=== PATIENT | female | born 1990 | race Caucasian/White ===

== ENCOUNTER 2017-04-09 07:17 | Emergency (ER) | payer OTHER ==
[~2017-04-09] VITALS: Ht 157.5 cm; Wt 65.8 kg
[2017-04-09 07:27] VITALS: BP 148/91
== END 2017-04-09 07:44 | disposition home or self-care (01) ==
LOC: EDUNIT# 07:17 → ER 07:18
DX: J02.9 Acute pharyngitis, unspecified (principal); K59.00 Constipation, unspecified
CPT/HCPCS: 99283; A4606; Z7610

== ENCOUNTER 2020-10-26 03:34 | Emergency (ER) | payer OTHER ==
[~2020-10-26] VITALS: Ht 160 cm; Wt 63.5 kg
--- NOTE | 2020-10-26 03:34 | NUR ---
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 VSS. NAD PENDING ER PROVIDER MYLES
[2020-10-26] MEDS ORDERED: methylPREDNISolone SOD SUCC 125 MG/2ML VIAL ONE (03:36)
[2020-10-26] MEDS ORDERED: diphenhydrAMINE HCL 50 MG/ML VIAL ONE (03:36)
[2020-10-26] MEDS ORDERED: FAMOTIDINE/PF INJ 20 MG/2 ML VIAL IV ONE (03:37)
[2020-10-26] MEDS ORDERED: FAMOTIDINE (20 MG) 20 MG TABLET ONE (03:53)
[2020-10-26] MEDS ORDERED: diphenhydrAMINE HCL 25 MG CAPSULE ONE (03:53)
[2020-10-26] MEDS ORDERED: predniSONE 20 MG TABLET ONE (03:54)
[2020-10-26] MEDS ORDERED: diphenhydrAMINE HCL 25 MG CAPSULE PO ONE (04:00)
[2020-10-26] MEDS ORDERED: predniSONE 50 MG TABLET PO ONE (04:00)
[2020-10-26] MEDS ORDERED: FAMOTIDINE (20 MG) 20 MG TABLET PO ONE (04:00)
--- NOTE | 2020-10-26 04:21 | NUR ---
Patient does not wish to proceed with medical care recommended by Dr. Bynum. Patient given information related to possible complications, up to and including , which could occur as a result of leaving the hospital at this time. Patient verbalizes understanding of risks involved due to leaving against medical advice. Patient has signed AMA form.
[2020-10-26 06:38] VITALS: BP 142/77
== END 2020-10-26 04:21 | disposition home or self-care (01) ==
LOC: ER 03:37
DX: T78.1XXA Other adverse food reactions, not elsewhere classified, initial encounter (principal); X58.XXXA Exposure to other specified factors, initial encounter
CPT/HCPCS: 99284; J7512; Q0163; J1200; J2930; J3490